=== PATIENT | female | born 1980 | race African-American/Black ===

== ENCOUNTER 2017-08-22 12:05 | Emergency (ER) | payer MEDICAID, MEDICARE ==
[~2017-08-22] VITALS: Ht 165.1 cm; Wt 78.0 kg
[2017-08-22 12:17] VITALS: BP 132/85
== END 2017-08-22 14:20 | disposition home or self-care (01) ==
LOC: ER 12:05
DX: Z76.0 Encounter for issue of repeat prescription (principal); F20.9 Schizophrenia, unspecified; F31.9 Bipolar disorder, unspecified; F17.200 Nicotine dependence, unspecified, uncomplicated; F12.10 Cannabis abuse, uncomplicated; Z88.8 Allergy status to other drugs, medicaments and biological substances
CPT/HCPCS: 99283